=== PATIENT | female | born 1950 | race Caucasian/White ===

== ENCOUNTER 2017-06-17 10:12 | Outpatient (CLI) | END 2017-06-17 10:13 | disposition home or self-care (01) | LOC: LAB 10:12 | PROVIDERS: ATTEND Family Medicine | DX: D64.9 Anemia, unspecified (principal); M47.812 Spondylosis without myelopathy or radiculopathy, cervical region | CPT/HCPCS: 36415; 82607; 82746; 83540; 83550; 85045 ==

== ENCOUNTER 2017-07-08 08:33 | Outpatient (CLI) ==
[2017-07-08 09:07] VITALS: BP 162/79; TEMP 98
[2017-07-08] MEDS ORDERED: INFED 975 MG in SODIUM CHLORIDE 500 ML IV STA (09:11)
[2017-07-08] MEDS ORDERED: INFED IVP STA (09:16)
== END 2017-07-08 08:34 | disposition home or self-care (01) ==
LOC: OPMED 08:33
PROVIDERS: ATTEND Family Medicine
DX: D50.9 Iron deficiency anemia, unspecified (principal); K90.9 Intestinal malabsorption, unspecified
CPT/HCPCS: 96365; 96366; 96375

== ENCOUNTER 2018-05-26 10:41 | Outpatient (CLI) | payer OTHER ==
[2018-05-26] MEDS ORDERED: INFED 975 MG in SODIUM CHLORIDE 500 ML IV STA (15:53)
[2018-05-26] MEDS ORDERED: INFED IVP STA (16:14)
[2018-05-27 02:23] VITALS: BP 153/77; TEMP 97.7
== END 2018-05-27 02:31 | disposition home or self-care (01) ==
LOC: LAB 10:41 → OPMED 10:42
PROVIDERS: ATTEND Family Medicine
DX: D50.9 Iron deficiency anemia, unspecified (principal); K90.9 Intestinal malabsorption, unspecified
CPT/HCPCS: 36415; 36430; 83540; 83550; 85014; 85018; 85025; 86850; 86900; 86922; 96365; 96366; 96376

== ENCOUNTER 2018-06-22 08:52 | Outpatient (CLI) ==
[2018-06-22 09:26] VITALS: BP 136/78; TEMP 97.2
[2018-06-22] MEDS ORDERED: INFED 1,000 MG in SODIUM CHLORIDE 500 ML IV STA (09:27)
== END 2018-06-22 08:53 | disposition home or self-care (01) ==
LOC: OPMED 08:52
PROVIDERS: ATTEND Family Medicine
DX: K90.9 Intestinal malabsorption, unspecified (principal); D50.9 Iron deficiency anemia, unspecified
CPT/HCPCS: 96365; 96366

== ENCOUNTER 2018-07-05 08:39 | Outpatient (CLI) | payer OTHER ==
[2018-07-05 15:33] VITALS: BP 154/80; TEMP 98.6
== END 2018-07-05 08:40 | disposition home or self-care (01) ==
LOC: LAB 08:39 → OPMED 08:40
PROVIDERS: ATTEND Family Medicine
DX: D50.0 Iron deficiency anemia secondary to blood loss (chronic) (principal)
CPT/HCPCS: 36415; 36430; 85014; 85018; 85027; 86850; 86900; 86922

== ENCOUNTER 2018-08-22 11:30 | Outpatient (CLI) | payer OTHER | END 2018-08-22 11:31 | disposition home or self-care (01) | LOC: LAB 11:30 | PROVIDERS: ATTEND Family Medicine | DX: D50.0 Iron deficiency anemia secondary to blood loss (chronic) (principal); R53.83 Other fatigue; K92.2 Gastrointestinal hemorrhage, unspecified | CPT/HCPCS: 36415; 85027; 86850; 86900; 86922 ==

== ENCOUNTER 2018-08-23 07:54 | Outpatient (CLI) ==
[2018-08-23 14:52] VITALS: TEMP 98.6
[2018-08-23 15:55] VITALS: BP 152/72
== END 2018-08-23 07:55 | disposition home or self-care (01) ==
LOC: OPMED 07:54
PROVIDERS: ATTEND Family Medicine
DX: D50.0 Iron deficiency anemia secondary to blood loss (chronic) (principal); R53.83 Other fatigue; K92.2 Gastrointestinal hemorrhage, unspecified
CPT/HCPCS: 36415; 36430; 85014; 85018; 86850; 86900; 86922

== ENCOUNTER 2018-09-12 07:24 | Outpatient (CLI) ==
[2018-09-12 07:40] VITALS: BP 156/72; TEMP 98.4
[2018-09-12] MEDS ORDERED: INFED 1,000 MG in SODIUM CHLORIDE 500 ML IV STA (07:44)
[2018-09-12] MEDS ORDERED: INFED IVP STA (07:47)
[2018-09-12] MEDS ORDERED: INFED 975 MG in SODIUM CHLORIDE 500 ML IV STA (07:47)
== END 2018-09-12 07:25 | disposition home or self-care (01) ==
LOC: OPMED 07:24
PROVIDERS: ATTEND Family Medicine
DX: D50.9 Iron deficiency anemia, unspecified (principal); Z87.19 Personal history of other diseases of the digestive system
CPT/HCPCS: 96365; 96366